=== PATIENT | female | born 1950 | race African-American/Black ===

== ENCOUNTER 2017-11-04 18:15 | Emergency (ER) | payer OTHER ==
[~2017-11-04] VITALS: Ht 157.5 cm; Wt 72.0 kg
[~2017-11-04 18:15] MED LIST: ATORVASTATIN; HYDROCHLOROTHIAZIDE
[2017-11-05 01:42] VITALS: BP 135/80
== END 2017-11-05 02:03 | disposition home or self-care (01) ==
LOC: ER 18:20
DX: I10 Essential (primary) hypertension (principal); F41.9 Anxiety disorder, unspecified; E78.00 Pure hypercholesterolemia, unspecified
CPT/HCPCS: 99283